=== PATIENT | male | born 1945 | race Caucasian/White ===

== ENCOUNTER 2016-12-03 22:53 | Emergency (ER) | payer MEDICARE, BC ==
--- NOTE | 2016-12-03 23:28 | EDM.PDOC ---
ED HPI GENERAL MEDICAL PROBLEM - General Chief Complaint: Cardiovascular Problem Stated Complaint: HEART RACING Time Seen by Provider: 12/03/16 22:53 Source of Information: Reports: Patient, Family () History Limitations: Reports: No Limitations - History of Present Illness INITIAL COMMENTS - FREE TEXT/NARRATIVE: Patient presents to ER with a racing heart that started about an hour prior to arrival. He says there is a little chest tightness but very mild. He has had sharp pains in his chest awaken about 0400 the last two mornings but resolved when he sat up. No history of this in the past. No OK but does have stents. - Related Data Allergies Allergy/AdvReac Type Severity Reaction Status Date / Time No Known Drug Allergies Allergy Cannot Verified 12/03/16 23:25 Remember Home Meds: Home Meds Aspirin 325 mg PO DAILY 02/22/15 [History] Losartan/Hydrochlorothiazide [Losartan-HCTZ 100-12.5 MG] 12.5 - 100 mg PO DAILY 02/22/15 [History] atorvaSTATin Calcium [Atorvastatin Calcium] 40 mg PO DAILY 02/22/15 [History] Sildenafil Citrate [Sildenafil] 20 mg PO DAILY PRN 12/03/16 [History] Past Medical History HEENT History: Reports: None Cardiovascular History: Reports: High Cholesterol, Hypertension Respiratory History: Reports: None Gastrointestinal History: Reports: GERD Genitourinary History: Reports: Renal Calculus Musculoskeletal History: Reports: None Neurological History: Reports: None Psychiatric History: Reports: None Endocrine/Metabolic History: Reports: None Hematologic History: Reports: None Dermatologic History: Reports: None - Past Surgical History Cardiovascular Surgical History: Reports: Coronary Artery Stent Social & Family History - Tobacco Use Smoking Status *Q: Never Smoker Second Hand Smoke Exposure: No - Recreational Drug Use Recreational Drug Use: No - Living Situation & Occupation Living situation: Reports: with Significant Other Occupation: Employed ED ROS GENERAL - Review of Systems Review Of Systems: See Below Constitutional: Reports: Diaphoresis (felt a little when the heart started racing). Denies: Fever HEENT: Denies: Throat Pain, Vision Change Respiratory: Denies: Shortness of Breath, Cough Cardiovascular: Denies: Lightheadedness, Syncope GI/Abdominal: Reports: Abdominal Pain (a little the past two days). Denies: Nausea, Vomiting : Denies: Dysuria Musculoskeletal: Denies: Neck Pain, Shoulder Pain, Arm Pain, Back Pain Skin: Denies: Cyanosis, Jaundice, Mottled, Pallor, Diaphoresis Neurological: Denies: Confusion, Dizziness, Headache, Seizure, Syncope Psychiatric: Denies: Agitation, Anxiety, Confusion ED EXAM, GENERAL - Physical Exam Exam: See Below Exam Limited By: No Limitations General Appearance: Alert, WD/WN, No Apparent Distress Eye Exam: Bilateral Eye: EOMI, Normal Inspection, PERRL Ears: Normal External Exam, Hearing Grossly Normal Nose: Normal Inspection, No Blood Throat/Mouth: Normal Lips, Normal Voice, No Airway Compromise Head: Atraumatic, Normocephalic Neck: Normal Inspection, Supple, Non-Tender, Full Range of Motion. No: Carotid Bruit Respiratory/Chest: No Respiratory Distress, Lungs Clear, Normal Breath Sounds Cardiovascular: Normal Peripheral Pulses, Regular Rate, Rhythm (following the adenosine), No Edema, No JVD, No Murmur Peripheral Pulses: 2+: Carotid (L), Carotid (R), Radial (L), Radial (R) GI/Abdominal: Normal Bowel Sounds, Soft, Non-Tender, No Organomegaly, No Distention Extremities: Normal Inspection, Normal Range of Motion, Non-Tender, No Pedal Edema Neurological: Alert, Oriented, Normal Cognition, No Motor/Sensory Deficits Psychiatric: Normal Affect, Normal Mood Skin Exam: Warm, Dry, Intact, Normal Color, No Rash Course - Orders/Labs/Meds Orders: Active Orders 24 hr Category Date Time Status EKG Documentation Completion [RC] ASDIRECTED Care 12/03/16 23:10 Ordered CXR [Chest 1V Frontal] [CR] Stat Exams 12/03/16 23:21 Ordered BASIC METABOLIC PANEL,BMP [CHEM] Stat Lab 12/03/16 23:10 Ordered CBC WITH AUTO DIFF [HEME] Stat Lab 12/03/16 23:10 Ordered TROPONIN I [CHEM] Stat Lab 12/03/16 23:10 Ordered EKG 12 Lead [EK] Routine Ther 12/03/16 23:10 Ordered - Re-Assessments/Exams Free Text/Narrative Re-Assessment/Exam: 12/03/16 23:31 EKG with HR 170 and wide complex tach. Unclear if V Tach or LBBB with SVT. [facility] consulted and they are also unclear but after reviewing several old EKGs also showing LBBB, administered adenosine 6 mg. This failed to slow the rhythm, but 12 mg was successful. HR dropped from 173 to 80s quickly and remained stable. Patient says that the mild chest tightness also went away and he feels completely normal now. Lolita NUNO recommends discussing with cardiology to see if they want to see him tonight or within next day or two. Of course if the pending troponin is elevated it will be tonight. 12/04/16 00:12 Trop is 0.07. Discussed this with direct service worker, Dr. Padilla, who thinks patient is okay to follow up with them next week for stress test and echocardiogram as long as the second trop isn't going up. Patient is resting very comfortably and is fine with going up next week but really hopes he can go home tonight. 12/04/16 02:04 Second trop is 0.12. Discussed with Dr. Langley, hospitalist at [facility] in [place] , who accepted for transfer. Patient has been stable and comfortable since the adenosine. Metoprolol 50mg was given po to control rate per Dr. Padilla. 12/04/16 02:22 The correct time of my first contact with the patient was 10:44 pm but the initial computer patient was wrong so this patient was entered into the computer later and it wouldn't accept the correct time of provider arrival since it was prior to patient arrival. Departure - Departure Time of Disposition: 02:06 Disposition: DC/Tfer to Acute Hospital 02 Reason for Transfer *Q: Primary PCI Indicated Condition: Good Clinical Impression: Elevated troponin, SVT (supraventricular tachycardia) CAD (coronary artery disease) Qualifiers: Coronary Disease-Associated Artery/Lesion type: [place] artery [place] vs. transplanted heart: [place] heart Associated angina: without angina Qualified Code(s): I25.10 - Atherosclerotic heart disease of [place] coronary artery without angina pectoris - My Orders Last 24 Hours: My Active Orders 12/03/16 23:10 EKG Documentation Completion [RC] ASDIRECTED BASIC METABOLIC PANEL,BMP [CHEM] Stat CBC WITH AUTO DIFF [HEME] Stat TROPONIN I [CHEM] Stat EKG 12 Lead [EK] Routine 12/03/16 23:21 CXR [Chest 1V Frontal] [CR] Stat - Assessment/Plan Last 24 Hours: My Active Orders 12/03/16 23:10 EKG Documentation Completion [RC] ASDIRECTED BASIC METABOLIC PANEL,BMP [CHEM] Stat CBC WITH AUTO DIFF [HEME] Stat TROPONIN I [CHEM] Stat EKG 12 Lead [EK] Routine 12/03/16 23:21 CXR [Chest 1V Frontal] [CR] Stat
[2016-12-03 23:33] LABS: CHLORIDE,CL 104 mmol/L (98-115); SODIUM,NA 142 mmol/L (136-145)
[2016-12-03] MEDS ORDERED: Adenosine 12 MG/4 ML SDV IVPUSH ONE (23:48)
[2016-12-03] MEDS ORDERED: Adenosine 6 MG/2 ML SDV IVPUSH ONE (23:48)
[2016-12-03] MEDS ORDERED: Sodium Chloride 0.9% 1,000 ML IV ONE (23:49)
[2016-12-04] MEDS ORDERED: Metoprolol Tartrate 50 MG Tab PO ONE (00:09)
[2016-12-04] MEDS ORDERED: Aspirin 81 MG Tab.Chew PO ONE (01:55)
[2016-12-04] MEDS ORDERED: Aspirin 81 MG Tab.Chew ONE (01:55)
[2016-12-04 02:22] VITALS: BP 119/58
== END 2016-12-04 02:38 ==
LOC: KA.ED 22:53
DX: I47.1 Supraventricular tachycardia (principal); R79.89 Other specified abnormal findings of blood chemistry; I25.10 Atherosclerotic heart disease of native coronary artery without angina pectoris; E78.00 Pure hypercholesterolemia, unspecified; I10 Essential (primary) hypertension; K21.9 Gastro-esophageal reflux disease without esophagitis; Z95.5 Presence of coronary angioplasty implant and graft; Z79.82 Long term (current) use of aspirin
CPT/HCPCS: 36415; 71010; 80048; 84484; 85025; 93005; 96361; 96374; 99285; A9270; J0153; J7030

== ENCOUNTER 2016-12-28 22:20 | Observation (INO) | payer MEDICARE, BC ==
[2016-12-28] MEDS ORDERED: Sodium Chloride 0.9% 5 ML Syringe FLUSH PRN (23:34)
[2016-12-29 06:48] VITALS: BP 114/68
[2016-12-29] MEDS ORDERED: Lidocaine 2% 100 MG/5 ML Syringe IVPUSH PRN (08:37)
[2016-12-29] MEDS ORDERED: EPINEPHrine 1:10,000 1 MG/10 ML Syringe IVPUSH PRN (08:37)
[2016-12-29] MEDS ORDERED: Atropine 0.1 MG/ML 10 ML Syringe IVPUSH PRN (08:37)
[2016-12-29] MEDS ORDERED: Nitroglycerin 0.4 MG Tab.SL SL PRN (08:37)
[2016-12-29] MEDS ORDERED: Aspirin 81 MG Tab.Chew PO SCH (08:45)
[2016-12-29] MEDS ORDERED: Clopidogrel 75 MG Tab PO SCH (09:00)
[2016-12-29] MEDS ORDERED: Hydrochlorothiazide 12.5 MG Cap PO SCH (09:00)
[2016-12-29] MEDS ORDERED: Losartan 50 MG Tab PO SCH (09:00)
[2016-12-29] MEDS ORDERED: atorvaSTATin 40 MG Tab PO SCH (21:00)
--- NOTE | 2017-01-04 08:30 | DISCH ---
FINAL DIAGNOSES: 1. Ruled out myocardial infarction. 2. Chest pain, resolved. HISTORY: This 71-year-old male was admitted to the hospital due to chest pain, he was for rule out [place]. He was evaluated by Dr. Cho, the morning of admission at the [facility] when he came in due to some chest pain that he described as pressure the night before with some mild shortness of breath. He stated he woke up about midnight before he came in, when he felt like somebody was pressing their finger on his chest. He took some [place]. It lasted about an hour. He did have some belching and some burping quite a bit, and within an hour, it went away. He felt much better and he slept the rest of the night. He subsequently did make an appointment that next morning. He stated he already had an initial appointment already made, so he did go in. Dr. Cho did perform troponin levels which were normal. Initially, however, he was to go back to the [facility] approximately 6 hours later for a repeat which was slightly elevated. The patient was subsequently directly admitted into observation overnight for serialized troponins. HOSPITAL COURSE: The patient's troponins in the hospital although very slightly elevated, he did not have any more chest pain. He felt good. Telemetries were monitored. He did not have EKG changes. He was subsequently released the next morning, and he followed up in the [facility] which he did have two more troponins that were normal. The patient's EKG does show left bundle branch block. It was unclear whether chest pain was any cardiac origin, Cardiology was consulted by Dr. Cho. Since he does have newly placed stents in, they felt like since he did not have any active chest pain other than mild GI symptoms, that most likely was not cardiac in origin. He never became hemodynamically unstable. Troponin in the hospital peaked at 0.18, which is a little more than two times upper limit of normal. Vital signs were good. Blood pressure 114/68, heart rate 55, temperature 97.2, and O2 sats 93%. He was monitored on telemetry. The next morning, he was ready for discharge. On discharge, he followed up with the [facility]. He had normal troponins x2 at the [facility]. He was to continue on all his home medications. PHYSICAL EXAM ON DISCHARGE: GENERAL: The patient was alert and oriented. CARDIOVASCULAR: Regular rate and rhythm. He had no chest pain. LUNGS: Clear to auscultation. GASTROINTESTINAL: He had no GI disturbance. DISPOSITION: The patient will be discharged from the hospital. /[id number]/MODL MTDD
== END 2016-12-29 12:15 | disposition home or self-care (01) ==
LOC: KA.MS 22:20
PROVIDERS: ADMIT Internal Medicine; ATTEND Internal Medicine
DX: R07.9 Chest pain, unspecified (principal); I25.10 Atherosclerotic heart disease of native coronary artery without angina pectoris; E78.2 Mixed hyperlipidemia; I10 Essential (primary) hypertension; I21.4 Non-ST elevation (NSTEMI) myocardial infarction; I50.32 Chronic diastolic (congestive) heart failure; E66.9 Obesity, unspecified; Z68.30 Body mass index [BMI] 30.0-30.9, adult; K21.9 Gastro-esophageal reflux disease without esophagitis; Z79.82 Long term (current) use of aspirin; Z79.899 Other long term (current) drug therapy
CPT/HCPCS: 36415; 84484

== ENCOUNTER 2017-09-03 05:05 | Emergency (ER) | payer MEDICARE, BC | END 2017-09-03 05:25 | disposition left against medical advice (07) | LOC: KA.ED 05:05 | DX: Z53.21 Procedure and treatment not carried out due to patient leaving prior to being seen by health care provider (principal) ==

== ENCOUNTER 2018-09-01 19:36 | Emergency (ER) | payer MEDICARE, BC ==
[2018-09-01] MEDS ORDERED: Tetracaine HCl/PF 0.5% 4 ML Bottle EYERT ONE (20:00)
[2018-09-01] MEDS ORDERED: Erythromycin Base 0.5% Ophth Oint 1 GM Tube EYERT ONE (20:18)
--- NOTE | 2018-09-01 20:27 | EDM.PDOC ---
ED HPI GENERAL MEDICAL PROBLEM - General Chief Complaint: General Stated Complaint: SOMETHING IN RIGHT EYE Time Seen by Provider: 09/01/18 20:18 Source of Information: Reports: Patient History Limitations: Reports: No Limitations - History of Present Illness INITIAL COMMENTS - FREE TEXT/NARRATIVE: Patient is a 73-year-old gentleman who presents to the emergency Department this evening with a complaint of right eye pain. Patient states that he was grinding metal and was not wearing eye protection. Patient states that small foreign body struck him in his eye. Now has a sensation of foreign body in the right eye. Patient denies any other injury. Onset: Today Duration: Minutes: Location: Reports: Other (Right eye) Quality: Reports: Burning Severity: Mild Improves with: Reports: None Worsens with: Reports: Other (Blinking) Context: Reports: Trauma Associated Symptoms: Reports: No Other Symptoms Right Eye Pain Score (Numeric/FACES): 5 - Related Data Allergies Allergy/AdvReac Type Severity Reaction Status Date / Time No Known Drug Allergies Allergy Cannot Verified 09/01/18 19:51 Remember Home Meds: Home Meds Losartan/Hydrochlorothiazide [Losartan-HCTZ 100-12.5 MG] 12.5 - 100 mg PO DAILY 02/22/15 [History] atorvaSTATin Calcium [Atorvastatin Calcium] 40 mg PO DAILY 02/22/15 [History] Sildenafil Citrate [Sildenafil] 20 mg PO DAILY PRN 12/03/16 [History] Clopidogrel Bisulfate [Clopidogrel] 75 mg PO DAILY 12/29/16 [History] Dutasteride 0.5 mg PO BEDTIME 09/01/18 [History] Terazosin [Hytrin] 1 mg PO BEDTIME 09/01/18 [History] Past Medical History HEENT History: Reports: None Cardiovascular History: Reports: High Cholesterol, Hypertension, Stents Other Cardiovascular History: 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, cardiac arrest Respiratory History: Reports: None Gastrointestinal History: Reports: GERD Other Gastrointestinal History: torn esophagus Genitourinary History: Reports: Renal Calculus Musculoskeletal History: Reports: None Neurological History: Reports: None Psychiatric History: Reports: None Endocrine/Metabolic History: Reports: None Hematologic History: Reports: None Dermatologic History: Reports: None - Infectious Disease History Infectious Disease History: Reports: Pertussis (Whooping Cough) - Past Surgical History Cardiovascular Surgical History: Reports: Coronary Artery Stent Social & Family History - Tobacco Use Smoking Status *Q: Never Smoker Second Hand Smoke Exposure: No - Caffeine Use Caffeine Use: Reports: Soda - Recreational Drug Use Recreational Drug Use: No - Living Situation & Occupation Living situation: Reports: with Significant Other Occupation: Employed ED ROS GENERAL - Review of Systems Review Of Systems: ROS reveals no pertinent complaints other than HPI. Constitutional: Reports: No Symptoms HEENT: Reports: Eye Pain (Right) Respiratory: Reports: No Symptoms Cardiovascular: Reports: No Symptoms Endocrine: Reports: No Symptoms GI/Abdominal: Reports: No Symptoms : Reports: No Symptoms Musculoskeletal: Reports: No Symptoms Skin: Reports: No Symptoms Neurological: Reports: No Symptoms Psychiatric: Reports: No Symptoms Hematologic/Lymphatic: Reports: No Symptoms Immunologic: Reports: No Symptoms ED EXAM, GENERAL - Physical Exam Exam: See Below Exam Limited By: No Limitations General Appearance: Alert, WD/WN, No Apparent Distress Eye Exam: Right Eye: Corneal Abrasion, Foreign Body Throat/Mouth: Normal Inspection, Normal Oropharynx, No Airway Compromise Head: Atraumatic, Normocephalic Neck: Normal Inspection Respiratory/Chest: No Respiratory Distress Neurological: Alert, Oriented, Normal Cognition Psychiatric: Normal Affect, Normal Mood Skin Exam: Warm, Dry, Intact, Normal Color, No Rash ED GENERAL MEDICAL PROCEDURES - Additional/Other Procedure(s) Other (Free Text) Procedure(s): Right eye mid lateral cornea metal foreign body. Tetracaine applied and visual acuity assessed. Patient 20/50 bilaterally. Using an 18-gauge 1-1/2 inch needle. Small metal foreign body removed without difficulty. Corneal abrasion remains. Eye copiously irrigated and no other foreign bodies noted. Erythromycin ointment applied. Patient tolerated procedure well Course - Vital Signs Last Recorded V/S: Last Vital Signs Temp 97.9 F 09/01/18 19:45 Pulse 59 L 09/01/18 19:45 Resp 20 09/01/18 19:45 BP Pulse Ox 95 09/01/18 19:45 - Orders/Labs/Meds Meds: Medications Discontinued Medications Generic Name Dose Route Start Last Admin Trade Name Nelida PRN Reason Stop Dose Admin Erythromycin 1 gm 09/01/18 20:18 Erythromycin 0.5% Ophth Oint EYERT 09/01/18 20:19 ONETIME ONE Tetracaine HCl 1 ml 09/01/18 20:00 09/01/18 20:03 Tetracaine 0.5% Steri-Unit Ramona EYERT 09/01/18 20:01 1 ml ASDIRECTED ONE Administration - Re-Assessments/Exams Free Text/Narrative Re-Assessment/Exam: 09/01/18 20:47 Patient afebrile, vital signs stable, tolerated procedure well, right eye pain relieved. Erythromycin ointment applied. Discussed case with Dr. Hadley, ophthalmology at [facility]. He will see patient in his office tomorrow afternoon. Departure - Departure Time of Disposition: 20:48 Disposition: Home, Self-Care 01 Clinical Impression: Corneal foreign body Qualifiers: Encounter type: initial encounter Laterality: right Qualified Code(s): T15.01XA - Foreign body in cornea, right eye, initial encounter Corneal abrasion Qualifiers: Encounter type: initial encounter Laterality: right Qualified Code(s): S05.01XA - Injury of conjunctiva and corneal abrasion without foreign body, right eye, initial encounter - Discharge Information Instructions: Eye Foreign Body, [id number], Corneal Abrasion, [id number] Referrals: Ivania De Anda MD [Primary Care Provider] - Additional Instructions: Follow-up with Dr. Hadley, ophthalmology at [facility] tomorrow. Contact office at 8 a.m. for appointment time. Return to emergency department sooner if symptoms continue or worsen. - Assessment/Plan Assessment:: Right eye corneal foreign body removed Plan: Follow-up with ophthalmology tomorrow
[2018-09-01] MEDS ORDERED: Erythromycin Base 0.5% Ophth Oint 3.5 GM Tube EYERT ONE (21:02)
== END 2018-09-01 21:10 | disposition home or self-care (01) ==
LOC: KA.ED 19:36
DX: T15.01XA Foreign body in cornea, right eye, initial encounter (principal); I10 Essential (primary) hypertension; E78.00 Pure hypercholesterolemia, unspecified; K21.9 Gastro-esophageal reflux disease without esophagitis; Z79.899 Other long term (current) drug therapy
CPT/HCPCS: 65220; 99282; 99283

== ENCOUNTER 2018-11-12 19:20 | Emergency (ER) | payer MEDICARE, BC ==
[2018-11-12] MEDS ORDERED: Sodium Chloride 0.9% 10 ML Syringe FLUSH PRN (19:24)
[2018-11-12] MEDS ORDERED: Sodium Chloride 0.9% 1,000 ML IV ONE (19:24)
[2018-11-12] MEDS ORDERED: Ondansetron 4 MG/2 ML SDV IVPUSH ONE ×2 (19:24→20:05)
--- NOTE | 2018-11-12 19:33 | EDM.PDOC ---
ED HPI GENERAL MEDICAL PROBLEM - General Chief Complaint: Abdominal Pain Stated Complaint: ABDOMINAL PAIN Time Seen by Provider: 11/12/18 19:25 Source of Information: Reports: Patient History Limitations: Reports: No Limitations - History of Present Illness INITIAL COMMENTS - FREE TEXT/NARRATIVE: 73 YO WM presents to ER complaining of LLQ abdominal pain which began suddenly just prior to arrival. Pt reports he was eating supper and developed LLQ pain with associated nausea/vomiting. Pt reports history of kidney stones and states the pain is similar to kidney stones in the past. Pt denies any history of diverticulitis, colitis, or bowel obstruction. Pt denies fever/chills. Pt with large amount of vomiting while in ER. Pt denies any testicular pain, no dysuria , no flank pain. Onset: Sudden Location: Reports: Abdomen Quality: Reports: Dull Severity: Severe Improves with: Reports: None Worsens with: Reports: None Associated Symptoms: Reports: Nausea/Vomiting. Denies: Chest Pain, Fever/Chills , Shortness of Breath right lower abdomen Pain Score (Numeric/FACES): 3 - Related Data Allergies Allergy/AdvReac Type Severity Reaction Status Date / Time No Known Drug Allergies Allergy Cannot Verified 11/12/18 19:50 Remember Home Meds: Home Meds Losartan/Hydrochlorothiazide [Losartan-HCTZ 100-12.5 MG] 12.5 - 100 mg PO DAILY 02/22/15 [History] atorvaSTATin Calcium [Atorvastatin Calcium] 40 mg PO DAILY 02/22/15 [History] Sildenafil Citrate 20 mg PO DAILY PRN 12/03/16 [History] Clopidogrel Bisulfate [Clopidogrel] 75 mg PO DAILY 12/29/16 [History] Dutasteride 0.5 mg PO BEDTIME 09/01/18 [History] Terazosin [Hytrin] 1 mg PO BEDTIME 09/01/18 [History] Past Medical History HEENT History: Reports: None Cardiovascular History: Reports: High Cholesterol, Hypertension, Stents Other Cardiovascular History: 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, cardiac arrest Respiratory History: Reports: None Gastrointestinal History: Reports: GERD Other Gastrointestinal History: torn esophagus Genitourinary History: Reports: Renal Calculus Musculoskeletal History: Reports: None Neurological History: Reports: None Psychiatric History: Reports: None Endocrine/Metabolic History: Reports: None Hematologic History: Reports: None Dermatologic History: Reports: None - Infectious Disease History Infectious Disease History: Reports: Pertussis (Whooping Cough) - Past Surgical History Cardiovascular Surgical History: Reports: Coronary Artery Stent Social & Family History - Caffeine Use Caffeine Use: Reports: Soda - Living Situation & Occupation Living situation: Reports: with Significant Other Occupation: Employed ED ROS GENERAL - Review of Systems Review Of Systems: See Below Constitutional: Reports: No Symptoms HEENT: Reports: No Symptoms Respiratory: Reports: No Symptoms Cardiovascular: Reports: No Symptoms Endocrine: Reports: No Symptoms GI/Abdominal: Reports: Abdominal Pain, Nausea, Vomiting : Reports: No Symptoms Musculoskeletal: Reports: No Symptoms Skin: Reports: No Symptoms Neurological: Reports: No Symptoms Psychiatric: Reports: No Symptoms Hematologic/Lymphatic: Reports: No Symptoms Immunologic: Reports: No Symptoms ED EXAM, RENAL/ - Physical Exam Exam: See Below Exam Limited By: No Limitations General Appearance: Alert, WD/WN, Mild Distress Throat/Mouth: Normal Inspection, Normal Lips, Normal Teeth, Normal Gums, Normal Oropharynx, Normal Voice, No Airway Compromise Head: Atraumatic, Normocephalic Neck: Normal Inspection, Supple, Non-Tender, Full Range of Motion Respiratory/Chest: No Respiratory Distress, Lungs Clear, Normal Breath Sounds, No Accessory Muscle Use, Chest Non-Tender Cardiovascular: Normal Peripheral Pulses, Regular Rate, Rhythm, No Edema, No Gallop, No JVD, No Murmur, No Rub GI/Abdominal: Normal Bowel Sounds, Soft, Non-Tender, No Organomegaly, No Distention, No Abnormal Bruit, No Mass, Tender (mild LLQ abdominal pain and suprapubic pain) Back Exam: Normal Inspection, Full Range of Motion, NT Extremities: Normal Inspection, Normal Range of Motion, Non-Tender, Normal Capillary Refill, No Pedal Edema Neurological: Alert, Oriented, CN II-XII Intact, Normal Cognition, Normal Gait, Normal Reflexes, No Motor/Sensory Deficits Psychiatric: Normal Affect, Normal Mood Skin Exam: Warm, Dry, Intact, Normal Color, No Rash Course - Vital Signs Last Recorded V/S: Last Vital Signs Temp 37.2 C 11/12/18 19:34 Pulse 57 L 11/12/18 19:34 Resp 20 11/12/18 19:34 BP 168/92 H 11/12/18 19:34 Pulse Ox 93 L 11/12/18 19:34 - Orders/Labs/Meds Orders: Active Orders 24 hr Category Date Time Status Peripheral IV Care [RC] . DIRECTED Care 11/12/18 19:25 Active Abdomen Pelvis wo Cont [CT] Stat Exams 11/12/18 19:51 Ordered Sodium Chloride 0.9% [Saline Flush] Med 11/12/18 19:24 Active 10 ml FLUSH Q8HR PRN Peripheral IV Insertion Adult [OM.PC] Routine Oth 11/12/18 19:24 Ordered Medication Orders Sodium Chloride (Saline Flush) 10 ml FLUSH Q8HR PRN PRN Reason: keep vein open Last Admin: 11/12/18 19:30 Dose: 10 ml Labs: Laboratory Tests 11/12/18 11/12/18 11/12/18 Range/Units 19:24 19:30 19:30 WBC 11.31 H (5.00-10.00) 10^3/uL RBC 4.80 (4.50-6.00) 10^6/uL Hgb 14.9 (13.0-17.0) g/dL Hct 43.9 (40.0-52.0) % MCV 91.5 (82.0-92.0) fL MCH 31.0 (27.0-31.0) pg MCHC 33.9 (32.0-36.0) g/dL RDW 13.0 (11.5-14.5) % Plt Count 225 (150-400) 10^3/uL MPV 12.1 H (7.4-10.4) fL Immature Gran % (Auto) 0.3 (0.0-5.0) % Neut % (Auto) 58.7 (50.0-70.0) % Lymph % (Auto) 26.1 (20.0-40.0) % [place] % (Auto) 11.8 H (2.0-8.0) % Eos % (Auto) 2.7 (1.0-3.0) % Baso % (Auto) 0.4 (0.0-1.0) % Immature Gran # (Auto) 0.03 (0.00-0.50) 10^3/uL Neut # (Auto) 6.65 (2.50-7.00) 10^3/uL Lymph # (Auto) 2.95 (1.00-4.00) 10^3/uL [place] # (Auto) 1.33 H (0.10-0.80) 10^3/uL Eos # (Auto) 0.30 (0.10-0.30) 10^3/uL Baso # (Auto) 0.05 (0.00-0.10) 10^3/uL Sodium 141 (136-145) mmol/L Potassium 3.8 (3.3-5.3) mmol/L Chloride 106 (98-115) mmol/L Carbon Dioxide 22.9 (21.0-32.0) mmol/L Anion Gap 15.9 H (5-15) mmol/L BUN 18 (6-25) mg/dL Creatinine 0.96 (0.51-1.17) mg/dL Est Cr Clr Drug Dosing 65.31 mL/min Estimated GFR (MDRD) > 60 mL/min Glucose 129 H (75 - 99) mg/dL Calcium 9.6 (8.7-10.3) mg/dL Total Bilirubin (0.2-1.0) mg/dL Direct Bilirubin (0.0-0.2) mg/dL Indirect Bilirubin mg/dL AST (15-37) U/L ALT (12-78) U/L Alkaline Phosphatase (46-116) IU/L Total Protein (6.4-8.2) g/dL Albumin (3.00-4.80) g/dL Globulin Albumin/Globulin Ratio Lipase (73-393) U/L Specimen Type Urinvoid Urine Color Yellow (YELLOW) Urine Appearance Clear (CLEAR) Urine pH 5.0 (5.0-9.0) Ur Specific [place] >= 1.030 (1.005-1.030) Urine Protein 30 H (NEGATIVE) mg/dL Urine Glucose (UA) Negative (NEGATIVE) mg/dL Urine Ketones Negative (NEGATIVE) mg/dL Urine Occult Blood Large H (NEGATIVE) Urine Nitrite Negative (NEGATIVE) Urine Bilirubin Negative (NEGATIVE) Urine Urobilinogen 0.2 (0.2-1.0) E.U./dL Ur Leukocyte Esterase Negative (NEGATIVE) Urine RBC 40-50 H (0-5) /HPF Urine WBC 0-5 (0-5) /HPF Ur Epithelial Cells Few /LPF Urine Bacteria Rare (NONE TO FEW) /HPF Urine Mucus Few H (NEGATIVE) /LPF Urine Yeast Moderate H (NEGATIVE) /HPF 11/12/18 Range/Units 19:30 WBC (5.00-10.00) 10^3/uL RBC (4.50-6.00) 10^6/uL Hgb (13.0-17.0) g/dL Hct (40.0-52.0) % MCV (82.0-92.0) fL MCH (27.0-31.0) pg MCHC (32.0-36.0) g/dL RDW (11.5-14.5) % Plt Count (150-400) 10^3/uL MPV (7.4-10.4) fL Immature Gran % (Auto) (0.0-5.0) % Neut % (Auto) (50.0-70.0) % Lymph % (Auto) (20.0-40.0) % [place] % (Auto) (2.0-8.0) % Eos % (Auto) (1.0-3.0) % Baso % (Auto) (0.0-1.0) % Immature Gran # (Auto) (0.00-0.50) 10^3/uL Neut # (Auto) (2.50-7.00) 10^3/uL Lymph # (Auto) (1.00-4.00) 10^3/uL [place] # (Auto) (0.10-0.80) 10^3/uL Eos # (Auto) (0.10-0.30) 10^3/uL Baso # (Auto) (0.00-0.10) 10^3/uL Sodium (136-145) mmol/L Potassium (3.3-5.3) mmol/L Chloride (98-115) mmol/L Carbon Dioxide (21.0-32.0) mmol/L Anion Gap (5-15) mmol/L BUN (6-25) mg/dL Creatinine (0.51-1.17) mg/dL Est Cr Clr Drug Dosing mL/min Estimated GFR (MDRD) mL/min Glucose (75 - 99) mg/dL Calcium (8.7-10.3) mg/dL Total Bilirubin 0.6 (0.2-1.0) mg/dL Direct Bilirubin 0.1 (0.0-0.2) mg/dL Indirect Bilirubin 0.5 mg/dL AST 25 (15-37) U/L ALT 29 (12-78) U/L Alkaline Phosphatase 76 (46-116) IU/L Total Protein 7.1 (6.4-8.2) g/dL Albumin 3.67 (3.00-4.80) g/dL Globulin 3.43 Albumin/Globulin Ratio 1.06 Lipase 143 (73-393) U/L Specimen Type Urine Color (YELLOW) Urine Appearance (CLEAR) Urine pH (5.0-9.0) Ur Specific [place] (1.005-1.030) Urine Protein (NEGATIVE) mg/dL Urine Glucose (UA) (NEGATIVE) mg/dL Urine Ketones (NEGATIVE) mg/dL Urine Occult Blood (NEGATIVE) Urine Nitrite (NEGATIVE) Urine Bilirubin (NEGATIVE) Urine Urobilinogen (0.2-1.0) E.U./dL Ur Leukocyte Esterase (NEGATIVE) Urine RBC (0-5) /HPF Urine WBC (0-5) /HPF Ur Epithelial Cells /LPF Urine Bacteria (NONE TO FEW) /HPF Urine Mucus (NEGATIVE) /LPF Urine Yeast (NEGATIVE) /HPF Meds: Medications Generic Name Dose Route Start Last Admin Trade Name Freq PRN Reason Stop Dose Admin Sodium Chloride 10 ml 11/12/18 19:24 11/12/18 19:30 Saline Flush FLUSH 10 ml Q8HR PRN Administration keep vein open Discontinued Medications Generic Name Dose Route Start Last Admin Trade Name Freq PRN Reason Stop Dose Admin Sodium Chloride 1,000 mls @ 999 mls/hr 11/12/18 19:24 11/12/18 19:49 Normal Saline IV 11/12/18 20:24 999 mls/hr .BOLUS ONE Administration Ketorolac Tromethamine 30 mg 11/12/18 19:51 11/12/18 20:03 Toradol IVPUSH 11/12/18 19:52 30 mg ONETIME ONE Administration Ondansetron HCl 4 mg 11/12/18 19:24 11/12/18 19:49 Zofran IVPUSH 11/12/18 19:25 4 mg ONETIME ONE Administration Ondansetron HCl 4 mg 11/12/18 20:05 Zofran IVPUSH 11/12/18 20:06 ONETIME ONE - Radiology Interpretation Free Text/Narrative:: CT abd/pelvis- 3mm distal left ureteral stone with mild hydronephrosis. - Re-Assessments/Exams Free Text/Narrative Re-Assessment/Exam: 11/12/18 21:15 Pt is painfree after toradol 30mg IV and zofran 4mg IV- Pt thinks his stone has passed. Pt wants to go home Departure - Departure Time of Disposition: 21:16 Disposition: Home, Self-Care 01 Condition: Good Clinical Impression: Kidney stone on left side - Discharge Information Instructions: Kidney Stones, Pain Medicine Instructions, [id number] Referrals: Ivania De Anda MD [Primary Care Provider] - Forms: ED Department Discharge Additional Instructions: 1. discharge home 2. hydrocodone 10/325mg #6 1 tablet every 6 hour as needed for pain 3. zofran 4mg ODT #5 1 SL Q6 prn vomiting 4. plenty of fluids 5. follow up with PCP for recheck this week 6. return to ER for worsening symptoms - My Orders Last 24 Hours: My Active Orders 11/12/18 19:24 Sodium Chloride 0.9% [Saline Flush] 10 ml FLUSH Q8HR PRN Peripheral IV Insertion Adult [OM.PC] Routine 11/12/18 19:25 Peripheral IV Care [RC] . DIRECTED 11/12/18 19:51 Abdomen Pelvis wo Cont [CT] Stat - Assessment/Plan Last 24 Hours: My Active Orders 11/12/18 19:24 Sodium Chloride 0.9% [Saline Flush] 10 ml FLUSH Q8HR PRN Peripheral IV Insertion Adult [OM.PC] Routine 11/12/18 19:25 Peripheral IV Care [RC] . DIRECTED 11/12/18 19:51 Abdomen Pelvis wo Cont [CT] Stat Assessment:: 1. Left 3mm UVJ stone with mild hydronephrosis Plan: 1. discharge home 2. hydrocodone 10/325mg #6 1 tablet every 6 hour as needed for pain 3. zofran 4mg ODT #5 1 SL Q6 prn vomiting 4. plenty of fluids 5. follow up with PCP for recheck this week 6. return to ER for worsening symptoms
[2018-11-12 19:42] VITALS: BP 168/92; PULSE 57
[2018-11-12] MEDS ORDERED: Ketorolac 30 MG/ML SDV IVPUSH ONE (19:51)
[2018-11-12 20:22] LABS: ANION GAP 15.9 mmol/L (5-15); CHLORIDE,CL 106 mmol/L (98-115); SODIUM,NA 141 mmol/L (136-145)
[2018-11-12] MEDS ORDERED: Acetaminophen/HYDROcodone 325-10 MG Tab PO ONE (21:17)
[2018-11-12] MEDS ORDERED: Ondansetron 4 MG Tab.DIS PO ONE (21:17)
--- NOTE | 2018-11-13 10:23 | CT ---
[id number] CT/CT Abdomen Pelvis WO IV EXAM: CT Abdomen Pelvis WO IV CLINICAL DATA: LLQ PAIN WITH HX OF KIDNEY STONES. COMPARISON STUDY: January 17, 2011. FINDINGS: Lung bases are clear. Small hiatal hernia. Liver, spleen, gallbladder, pancreas, and adrenal glands are unremarkable. There is a 3 mm stone within the distal 3rd of the left ureter resulting in mild hydronephrosis and hydroureter. There are additional punctate stones seen throughout the kidneys bilaterally. Additionally there are multiple renal cortical cysts. No hydronephrosis on the right. No bowel obstruction or inflammation. No lymphadenopathy, free fluid, or pneumoperitoneum. Scattered changes of spondylosis the spine. No fracture or osseous lesion. IMPRESSION: 3 mm stone within the distal 3rd of the left ureter resulting in mild hydronephrosis and hydroureter. Eddie Marion DO 11/13/18 1022 Thank you for allowing us to participate in the care of your patient.
== END 2018-11-12 21:30 | disposition home or self-care (01) ==
LOC: KA.ED 19:20
DX: N13.2 Hydronephrosis with renal and ureteral calculous obstruction (principal); E78.00 Pure hypercholesterolemia, unspecified; I10 Essential (primary) hypertension; K21.9 Gastro-esophageal reflux disease without esophagitis; Z79.899 Other long term (current) drug therapy; Z87.442 Personal history of urinary calculi
CPT/HCPCS: 74176; 80048; 80076; 81001; 83690; 85025; 96361; 96374; 96375; 99284; J1885; J2405; J7030

== ENCOUNTER 2020-05-14 22:50 | Emergency (ER) | payer MEDICARE, BC ==
[2020-05-14] MEDS ORDERED: Sodium Chloride 0.9% 1,000 ML ONE (23:08)
[2020-05-14] MEDS ORDERED: Sodium Chloride 0.9% 10 ML Syringe FLUSH PRN (23:11)
[2020-05-14] MEDS ORDERED: Sodium Chloride 0.9% 1,000 ML IV SCH (23:15)
[2020-05-14] MEDS ORDERED: Adenosine 12 MG/4 ML SDV IVPUSH ONE ×2 (23:19)
--- NOTE | 2020-05-14 23:20 | EDM.PDOC ---
ED HPI GENERAL MEDICAL PROBLEM - General Chief Complaint: Chest Pain Stated Complaint: chest tightness Time Seen by Provider: 05/14/20 23:09 Source of Information: Reports: Patient - History of Present Illness INITIAL COMMENTS - FREE TEXT/NARRATIVE: Gustavo Granda, 74-year-old male, presents emergency department with chest pressure and shortness of breath. States this started roughly at 930 this evening and has sustained itself leading to increasing shortness of breath and some abdominal irritation. He states he took 1 aspirin this evening 81 mg with no improvement and finally decided to come in for evaluation. This it occurred yesterday as well and he presented to the clinic and was evaluated by Dr. Yoandy De Anda with EKG obtained at that time showing no concern. He states he was feeling well at the time of the appointment. It recurred this evening, symptoms similar to prior his appointment with Dr. De Anda and Was more involved with pressure as well has shortness of breath. Denies any fever chills, denies any claudication or calf pain. Denies any immobilization other than the procedure and the time thereafter with his only travel being the [address] No additional DVT or clotting risks. Onset: Today, Sudden Onset Date: 05/14/20 Onset Time: 21:30 Duration: Hour(s): Location: Reports: Chest Quality: Reports: Pressure Severity: Moderate Improves with: Reports: None Worsens with: Reports: Movement Context: Reports: Other Associated Symptoms: Reports: No Other Symptoms - Related Data Allergies Allergy/AdvReac Type Severity Reaction Status Date / Time No Known Drug Allergies Allergy Cannot Verified 05/14/20 23:07 Remember Home Meds: Home Meds atorvaSTATin Calcium [Atorvastatin Calcium] 40 mg PO DAILY 02/22/15 [History] Sildenafil Citrate 20 mg PO DAILY PRN 12/03/16 [History] Clopidogrel Bisulfate [Clopidogrel] 75 mg PO DAILY 12/29/16 [History] Dutasteride 0.5 mg PO BEDTIME 09/01/18 [History] Terazosin [Hytrin] 1 mg PO BEDTIME 09/01/18 [History] Aspirin [Aspirin EC] 81 mg PO DAILY 05/15/20 [History] Diclofenac Sodium 2 g TOP BID 05/15/20 [History] Isosorbide Mononitrate [Imdur] 30 mg PO DAILY 05/15/20 [History] Losartan [Cozaar] 100 mg PO DAILY 05/15/20 [History] carvediloL [Carvedilol] 6.25 mg PO BID 05/15/20 [History] Past Medical History HEENT History: Reports: None Cardiovascular History: Reports: High Cholesterol, Hypertension, Stents Other Cardiovascular History: 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, cardiac arrest Respiratory History: Reports: None Gastrointestinal History: Reports: GERD Other Gastrointestinal History: torn esophagus Genitourinary History: Reports: Renal Calculus Musculoskeletal History: Reports: None Neurological History: Reports: None Psychiatric History: Reports: None Endocrine/Metabolic History: Reports: None Hematologic History: Reports: None Dermatologic History: Reports: None - Infectious Disease History Infectious Disease History: Reports: Pertussis (Whooping Cough) - Past Surgical History Cardiovascular Surgical History: Reports: Coronary Artery Stent, Pacer, Percutaneous Transluminal Angioplasty Social & Family History - Family History Family Medical History: No Pertinent Family History - Tobacco Use Tobacco Use Status *Q: Former Tobacco User - Caffeine Use Caffeine Use: Reports: Soda - Alcohol Use Alcohol Use History: No - Living Situation & Occupation Living situation: Reports: with Significant Other Occupation: Employed ED ROS GENERAL - Review of Systems Review Of Systems: Comprehensive ROS is negative, except as noted in HPI. Constitutional: Reports: No Symptoms HEENT: Reports: No Symptoms Respiratory: Reports: Shortness of Breath Cardiovascular: Reports: Other (chest pressure) GI/Abdominal: Reports: Other (abdominal irritation ) : Reports: No Symptoms Musculoskeletal: Reports: No Symptoms Skin: Reports: No Symptoms (area of pacemaker insertion bruised and tender) Neurological: Reports: No Symptoms Psychiatric: Reports: No Symptoms Hematologic/Lymphatic: Reports: No Symptoms Immunologic: Reports: No Symptoms ED EXAM, GENERAL - Physical Exam Exam: See Below Free Text/Narrative:: Alert, oriented, with mild pallor. Hypotension is noted with a weak radial pulse bilateral he is able to converse freely stating his breathing is the main concern with minimal dizziness symptoms. HEENT is negative to discharge or deformity. [place] moist mucous membranes Neck is soft supple I do not appreciate any bruit nor JVD nor rigidity. Thorax is overall clear mildly diminished at the bases there is fresh incision site with bruising and healing from his pacemaker insertion 1 week ago yesterday. Tenderness in the surrounding tissue. Cardiac is very rapid, I do not appreciate any murmur. Bedside monitor shows SVT 160's to 180's. Abdomen is soft no megaly no distention, bowel sounds are present. rectal deferred. +1 edema to the lower extremities with warm dry skin. ED GENERAL MEDICAL PROCEDURES - Additional/Other Procedure(s) Other (Free Text) Procedure(s): Adenosine was administered 6 mg IV rapid with rapid flush following. We did initially convert to sinus with trigeminal PVC initially, rate picked back up into the 160s. 12 mg adenosine administered rapidly with flush, with this time converting in the 60s which activated his pacemaker. Occasional trigeminal PVC was noted, this resolved with occasional PVC showing with heart rate then again pacemaker taking over in full paced mode with heart rate coming up 71 at which time pacer shut off and has maintained sinus since then with occasional pacemaker firing. He states he feels quite well, "good enough to go home". #1 Interpretation EKG Date: 05/14/20 Time: 23:04 Rhythm: Other Rate (Beats/Min): 159 [place]: Normal QRS: Normal ST-T: Normal QT: Normal Comparison: Change From Previous EKG (SSVT) #2 Interpretation EKG Date: 05/14/20 Time: 23:46 Rhythm: NSR Rate (Beats/Min): 71 [place]: LAD-Left [place] Deviation P-Wave: Present QRS: LBBB ST-T: Normal QT: Normal Comparison: Change From Previous EKG (post adenosine conversion) Course - Vital Signs Last Recorded V/S: Last Vital Signs Temp 97 F 05/15/20 01:00 Pulse 60 05/15/20 01:00 Resp 16 05/15/20 01:00 BP 120/80 05/15/20 01:00 Pulse Ox 97 05/15/20 01:00 - Orders/Labs/Meds Orders: Active Orders 24 hr Category Date Time Status EKG Documentation Completion [RC] ASDIRECTED Care 05/14/20 23:11 Ordered EKG Documentation Completion [RC] ASDIRECTED Care 05/14/20 23:41 Ordered Peripheral IV Care [RC] . DIRECTED Care 05/14/20 23:11 Active CTA Chest W WO Contrast [Ang Chest] [CT] Stat Exams 05/14/20 23:51 Ordered Chest 1V Frontal [CR] Stat Exams 05/14/20 23:10 Ordered Heparin Sodium/D5W 250 ml Med 05/15/20 01:30 Active IV TITRATE Sodium Chloride 0.9% @ 150 MLS/HR (1000ml) Med 05/14/20 23:15 Ordered Sodium Chloride 0.9% [Normal Saline] 1,000 ml IV ASDIRECTED Sodium Chloride 0.9% [Normal Saline] 50 ml Med 05/14/20 23:45 Active IV ASDIRECTED Sodium Chloride 0.9% [Saline Flush] Med 05/14/20 23:11 Ordered 10 ml FLUSH Q8HR PRN Peripheral IV Insertion Adult [OM.PC] Routine Oth 05/14/20 23:11 Ordered EKG 12 Lead [EK] Stat Ther 05/14/20 23:10 Ordered EKG 12 Lead [EK] Urgent Ther 05/14/20 23:41 Ordered Medication Orders Sodium Chloride (Normal Saline) 1,000 mls @ 150 mls/hr IV ASDIRECTED JASON Last Admin: 05/14/20 23:18 Dose: 150 mls/hr Documented by: CALESIL Sodium Chloride (Normal Saline) 50 mls @ 200 mls/min IV ASDIRECTED JASON Last Admin: 05/15/20 00:25 Dose: 200 mls/min Documented by: ENDECAY Heparin Sodium/Dextrose () 250 mls @ 1,244.656 mls/hr IV TITRATE JASON Sodium Chloride (Saline Flush) 10 ml FLUSH Q8HR PRN PRN Reason: keep vein open Labs: Laboratory Tests 05/14/20 05/14/20 05/14/20 Range/Units 00:01 23:05 23:05 WBC 9.95 (5.00-10.00) 10^3/uL RBC 4.48 L (4.50-6.00) 10^6/uL Hgb 14.2 (13.0-17.0) g/dL Hct 41.9 (40.0-52.0) % MCV 93.5 H (82.0-92.0) fL MCH 31.7 H (27.0-31.0) pg MCHC 33.9 (32.0-36.0) g/dL RDW 12.8 (11.5-14.5) % Plt Count 247 (150-400) 10^3/uL MPV 11.3 H (7.4-10.4) fL Immature Gran % (Auto) 0.1 (0.0-5.0) % Neut % (Auto) 60.1 (50.0-70.0) % Lymph % (Auto) 25.5 (20.0-40.0) % [place] % (Auto) 9.7 H (2.0-8.0) % Eos % (Auto) 3.9 H (1.0-3.0) % Baso % (Auto) 0.7 (0.0-1.0) % Neut # (Auto) 5.97 (2.50-7.00) 10^3/uL Lymph # (Auto) 2.54 (1.00-4.00) 10^3/uL [place] # (Auto) 0.97 H (0.10-0.80) 10^3/uL Eos # (Auto) 0.39 H (0.10-0.30) 10^3/uL Baso # (Auto) 0.07 (0.00-0.10) 10^3/uL Immature Gran # (Auto) 0.01 (0.00-0.50) 10^3/uL APTT 26.5 (22.8-31.4) SEC D-Dimer, Quantitative (<400) ng/mL Sodium 141 (136-145) mmol/L Potassium 4.1 (3.5-5.1) mmol/L Chloride 106 (98-107) mmol/L Carbon Dioxide 26.8 (21.0-32.0) mmol/L Anion Gap 12.3 (5-15) mmol/L BUN 21 H (7-18) mg/dL Creatinine 0.91 (0.51-1.17) mg/dL Est Cr Clr Drug Dosing 67.86 mL/min Estimated GFR (MDRD) > 60 mL/min Glucose 121 (70-140) mg/dL Calcium 10.2 (8.7-10.3) mg/dL Total Bilirubin 0.4 (0.2-1.0) mg/dL AST 15 (15-37) U/L ALT 28 (14-63) U/L Alkaline Phosphatase 85 (46-116) U/L Creatine Kinase 39 (26-276) U/L CK-MB (CK-2) 0.89 (0.00-3.60) ng/mL Troponin I 0.091 H* (0.000-0.056) ng/mL B-Natriuretic Peptide 223 H (0-100) pg/mL Total Protein 6.8 (6.4-8.2) g/dL Albumin 3.26 L (3.40-5.00) g/dL SARS CoV-2 RNA Rapid LEAH (NEGATIVE) 05/14/20 05/14/20 Range/Units 23:05 23:50 WBC (5.00-10.00) 10^3/uL RBC (4.50-6.00) 10^6/uL Hgb (13.0-17.0) g/dL Hct (40.0-52.0) % MCV (82.0-92.0) fL MCH (27.0-31.0) pg MCHC (32.0-36.0) g/dL RDW (11.5-14.5) % Plt Count (150-400) 10^3/uL MPV (7.4-10.4) fL Immature Gran % (Auto) (0.0-5.0) % Neut % (Auto) (50.0-70.0) % Lymph % (Auto) (20.0-40.0) % [place] % (Auto) (2.0-8.0) % Eos % (Auto) (1.0-3.0) % Baso % (Auto) (0.0-1.0) % Neut # (Auto) (2.50-7.00) 10^3/uL Lymph # (Auto) (1.00-4.00) 10^3/uL [place] # (Auto) (0.10-0.80) 10^3/uL Eos # (Auto) (0.10-0.30) 10^3/uL Baso # (Auto) (0.00-0.10) 10^3/uL Immature Gran # (Auto) (0.00-0.50) 10^3/uL APTT (22.8-31.4) SEC D-Dimer, Quantitative 1230 H (<400) ng/mL Sodium (136-145) mmol/L Potassium (3.5-5.1) mmol/L Chloride (98-107) mmol/L Carbon Dioxide (21.0-32.0) mmol/L Anion Gap (5-15) mmol/L BUN (7-18) mg/dL Creatinine (0.51-1.17) mg/dL Est Cr Clr Drug Dosing mL/min Estimated GFR (MDRD) mL/min Glucose (70-140) mg/dL Calcium (8.7-10.3) mg/dL Total Bilirubin (0.2-1.0) mg/dL AST (15-37) U/L ALT (14-63) U/L Alkaline Phosphatase (46-116) U/L Creatine Kinase (26-276) U/L CK-MB (CK-2) (0.00-3.60) ng/mL Troponin I (0.000-0.056) ng/mL B-Natriuretic Peptide (0-100) pg/mL Total Protein (6.4-8.2) g/dL Albumin (3.40-5.00) g/dL SARS CoV-2 RNA Rapid LEAH Negative (NEGATIVE) Meds: Medications Generic Name Dose Route Start Last Admin Trade Name Nelida PRN Reason Stop Dose Admin Sodium Chloride 1,000 mls @ 150 mls/hr 05/14/20 23:15 05/14/20 23:18 Normal Saline IV 150 mls/hr ASDIRECTED JASON Administration Sodium Chloride 50 mls @ 200 mls/min 05/14/20 23:45 05/15/20 00:25 Normal Saline IV 200 mls/min ASDIRECTED JASON Administration Heparin Sodium/Dextrose 250 mls @ 1,244.656 mls/hr 05/15/20 01:30 IV TITRATE JASON 1,400 UNITS/KG/HR Sodium Chloride 10 ml 05/14/20 23:11 Saline Flush FLUSH Q8HR PRN keep vein open Discontinued Medications Generic Name Dose Route Start Last Admin Trade Name Freq PRN Reason Stop Dose Admin Adenosine 6 mg 05/14/20 23:19 05/14/20 23:30 Adenocard IVPUSH 05/14/20 23:20 6 mg NOW ONE Administration Adenosine 12 mg 05/14/20 23:19 05/14/20 23:33 Adenocard IVPUSH 05/14/20 23:20 12 mg NOW ONE Administration Aspirin Confirm 05/14/20 23:08 05/15/20 01:03 Aspirin Administered 05/14/20 23:09 243 mg Dose Administration 324 mg .ROUTE .STK-MED ONE Heparin Sodium (Porcine) 4,000 units 05/15/20 01:20 Heparin Sodium IVPUSH 05/15/20 01:21 .BOLUS ONE Sodium Chloride Confirm 05/14/20 23:08 05/14/20 23:38 Normal Saline Administered 05/14/20 23:09 Not Given Dose 1,000 mls @ as directed .ROUTE .STK-MED ONE Iopamidol 75 ml 05/14/20 23:49 05/15/20 00:25 Isovue-370 (76%) IVPUSH 05/14/20 23:50 75 ml ONETIME ONE Administration Departure - Departure Time of Disposition: :26 Disposition: DC/Tfer to Acute Hospital 02 Condition: Fair Clinical Impression: Acute coronary syndrome, Elevated brain natriuretic peptide (BNP) level, Elevated d-dimer, Elevated troponin, Paroxysmal SVT (supraventricular tachycardia), Pressure in chest, S/P cardiac pacemaker procedure - Discharge Information *PRESCRIPTION DRUG MONITORING PROGRAM REVIEWED*: Not Applicable *COPY OF PRESCRIPTION DRUG MONITORING REPORT IN PATIENT WILDER: Not Applicable Referrals: Ivania De Anda MD [Primary Care Provider] - Forms: ED Department Discharge, Interfacility Transfer ROSALINDALA Additional Instructions: Contact [facility] Dr. Boby Herrera excepting for ALS transfer to the CDU room 14 Sepsis Event Note (ED) - Focused Exam Vital Signs: Vital Signs Temp Pulse Resp BP Pulse Ox 05/15/20 01:00 97 F 60 16 120/80 97 05/15/20 00:15 67 14 134/69 99 05/15/20 00:13 66 119/74 99 05/14/20 23:50 69 16 126/80 98 05/14/20 23:39 96.6 F L 160 H 20 104/73 98 05/14/20 23:35 70 19 132/88 97 05/14/20 23:30 70 55/37 L 05/14/20 23:05 160 H 20 92/77 95 ED Communication - ED Communication Date/Time Date: 05/15/20 Time Called: 01:10 - Discussed Case With (1) Discussed Case With (1): Admitting Provider Person/s Notified (1): Boby Herrera (IM) - Conversation Summary Admitting Provider Agreed to Patient's Admission: Yes Shelving Supervisor Accepted Inpatient Consultation: Yes Patient Aware of Amendments fo Care Plan: Yes - Problem List & Annotations (1) Pressure in chest SNOMED Code(s): 624508974 Code(s): R07.89 - OTHER CHEST PAIN Status: Acute Current Visit: Yes (2) SOB (shortness of breath) SNOMED Code(s): 529517817 Code(s): R06.02 - SHORTNESS OF BREATH Status: Acute Priority: Medium Current Visit: Yes (3) Paroxysmal SVT (supraventricular tachycardia) SNOMED Code(s): 95117458 Code(s): I47.1 - SUPRAVENTRICULAR TACHYCARDIA Status: Acute Priority: High Current Visit: Yes (4) Elevated troponin SNOMED Code(s): 759816692, 887816225, 977257145 Code(s): R74.8 - ABNORMAL LEVELS OF OTHER SERUM ENZYMES Status: Acute Priority: High Current Visit: Yes (5) Elevated d-dimer SNOMED Code(s): 063246843 Code(s): R79.89 - OTHER SPECIFIED ABNORMAL FINDINGS OF BLOOD CHEMISTRY Status: Acute Priority: High Current Visit: Yes (6) S/P cardiac pacemaker procedure SNOMED Code(s): 620431535, 161705712, 787704474 Code(s): Z95.0 - PRESENCE OF CARDIAC PACEMAKER Status: Acute Priority: High Current Visit: Yes (7) Elevated brain natriuretic peptide (BNP) level SNOMED Code(s): 438941597, 027373671 Code(s): R79.89 - OTHER SPECIFIED ABNORMAL FINDINGS OF BLOOD CHEMISTRY Status: Acute Priority: Medium Current Visit: Yes (8) Kidney lesion, [place], right SNOMED Code(s): 73941365 Code(s): N28.9 - DISORDER OF KIDNEY AND URETER, UNSPECIFIED Status: Acute Priority: Medium Current Visit: Yes (9) Thyroid nodule SNOMED Code(s): 607780107 Code(s): E04.1 - NONTOXIC SINGLE THYROID NODULE Status: Acute Priority: Medium Current Visit: Yes - Problem List Review Problem List Initiated/Reviewed/Updated: Yes - My Orders Last 24 Hours: My Active Orders 05/14/20 23:10 Chest 1V Frontal [CR] Stat EKG 12 Lead [EK] Stat 05/14/20 23:11 EKG Documentation Completion [RC] ASDIRECTED Peripheral IV Care [RC] . DIRECTED Sodium Chloride 0.9% [Saline Flush] 10 ml FLUSH Q8HR PRN Peripheral IV Insertion Adult [OM.PC] Routine 05/14/20 23:15 Sodium Chloride 0.9% @ 150 MLS/HR (1000ml) Sodium Chloride 0.9% [Normal Saline] 1,000 ml IV ASDIRECTED 05/14/20 23:41 EKG Documentation Completion [RC] ASDIRECTED EKG 12 Lead [EK] Urgent 05/14/20 23:45 Sodium Chloride 0.9% [Normal Saline] 50 ml IV ASDIRECTED 05/14/20 23:51 CTA Chest W WO Contrast [Ang Chest] [CT] Stat 05/15/20 01:30 Heparin Sodium/D5W 250 ml IV TITRATE - Assessment/Plan Last 24 Hours: My Active Orders 05/14/20 23:10 Chest 1V Frontal [CR] Stat EKG 12 Lead [EK] Stat 05/14/20 23:11 EKG Documentation Completion [RC] ASDIRECTED Peripheral IV Care [RC] . DIRECTED Sodium Chloride 0.9% [Saline Flush] 10 ml FLUSH Q8HR PRN Peripheral IV Insertion Adult [OM.PC] Routine 05/14/20 23:15 Sodium Chloride 0.9% @ 150 MLS/HR (1000ml) Sodium Chloride 0.9% [Normal Saline] 1,000 ml IV ASDIRECTED 05/14/20 23:41 EKG Documentation Completion [RC] ASDIRECTED EKG 12 Lead [EK] Urgent 05/14/20 23:45 Sodium Chloride 0.9% [Normal Saline] 50 ml IV ASDIRECTED 05/14/20 23:51 CTA Chest W WO Contrast [Ang Chest] [CT] Stat 05/15/20 01:30 Heparin Sodium/D5W 250 ml IV TITRATE Plan: Contact [facility] Dr. Boby Herrera excepting for ALS transfer to the CDU room 14
[2020-05-14] MEDS: Aspirin 81 MG Tab.Chew ONE (23:37)
[2020-05-14 23:45] LABS: ANION GAP 12.3 mmol/L (5-15); CHLORIDE,CL 106 mmol/L (98-107); SODIUM,NA 141 mmol/L (136-145)
[2020-05-14] MEDS ORDERED: Sodium Chloride 0.9% 50 ML IV SCH (23:45)
[2020-05-14] MEDS ORDERED: Iopamidol 755 Mg/ML 75 ML Bottle IVPUSH ONE (23:49)
[2020-05-15] MEDS: Aspirin 81 MG Tab.Chew ONE (01:03)
[2020-05-15 01:12] VITALS: BP 120/80; PULSE 60
[2020-05-15] MEDS ORDERED: Heparin Sodium 5,000 Units/ML Vial IVPUSH ONE (01:20)
[2020-05-15] MEDS ORDERED: Heparin Sodium/D5W 250 ML IV SCH ×2 (01:30→02:15)
--- NOTE | 2020-05-15 08:32 | CT ---
[id number] CT/CTA Chest EXAM: CTA Chest CLINICAL DATA: ELEVATED D DIMER, CHEST PRESSURE, ELEVATED TROPONIN COMPARISON STUDY: CT from November 12, 2018. FINDINGS: Lungs: Small bilateral pleural effusions and bibasal dependent atelectasis. No evidence of pneumonia. No pneumothorax or pulmonary edema. Mediastinum: No mediastinal or hilar lymphadenopathy. Heart and great vessels: Cardiomegaly and coronary artery atherosclerosis. Trace pericardial fluid. Left chest wall cardiac conduction device in place. Negative for pulmonary embolus. Bones: No acute fracture or compression deformity. Spondylosis. Benign-appearing enchondroma in the proximal humeral metaphysis. Upper abdomen: Bilateral nonobstructing calculi. Multiple hypodense masses in both kidneys. Findings are most consistent with cortical and sinus cysts, correlating with findings on examination from November 2018. IMPRESSION: Negative for pulmonary embolus. Small bilateral pleural effusions and trace pericardial effusion of uncertain etiology or clinical significance. Other findings are described above. Hesham York MD 05/15/20 0831 Thank you for allowing us to participate in the care of your patient.
--- NOTE | 2020-05-15 08:48 | CR ---
[id number] RAD/RAD Chest PA or AP 1V EXAM: FRONTAL CHEST INDICATION: CHEST PAIN COMPARISON: December 03, 2016. DISCUSSION: Hypoinflation with central vascular crowding and mild basilar atelectasis or scarring which is similar to previous studies. This could obscure other underlying pathology. Stable mild cardiomegaly without evidence of edema. Left subclavian approach pacemaker leads RA and RV. No effusions. IMPRESSION: 1. Low lung volumes. Otherwise negative examination. Peewee Segura MD 05/15/20 0865 Thank you for allowing us to participate in the care of your patient.
== END 2020-05-15 05:00 ==
LOC: KA.ED 22:50
DX: I24.9 Acute ischemic heart disease, unspecified (principal); R79.89 Other specified abnormal findings of blood chemistry; R79.1 Abnormal coagulation profile; I47.1 Supraventricular tachycardia; E78.00 Pure hypercholesterolemia, unspecified; I10 Essential (primary) hypertension; Z95.0 Presence of cardiac pacemaker; Z20.822 Contact with and (suspected) exposure to COVID-19; Z79.82 Long term (current) use of aspirin; Z79.02 Long term (current) use of antithrombotics/antiplatelets; Z79.899 Other long term (current) drug therapy; Z87.891 Personal history of nicotine dependence; R06.02 Shortness of breath
CPT/HCPCS: 36415; 71045; 71275; 80053; 82550; 82553; 83880; 84484; 85025; 85379; 85730; 93005; 96365; 96374; 99285; 99285-25; A9270-GY; J0153; J1644; J7030; Q9967; U0002

== ENCOUNTER 2020-05-19 00:42 | Emergency (ER) | payer MEDICARE, BC ==
[2020-05-19] MEDS ORDERED: Amiodarone 150 MG/3 ML SDV IVPUSH ONE (01:32)
[2020-05-19] MEDS ORDERED: Amiodarone In Dextrose,Iso-Osm 360 MG in Premix Bag 1 BAG IV SCH ×2 (01:45)
[2020-05-19 01:55] LABS: ANION GAP 12.4 mmol/L (5-15); CHLORIDE,CL 105 mmol/L (98-107); SODIUM,NA 139 mmol/L (136-145)
[2020-05-19] MEDS ORDERED: Sodium Chloride 0.9% 0 ML ONE (01:56)
--- NOTE | 2020-05-19 02:21 | EDM.PDOC ---
ED HPI GENERAL MEDICAL PROBLEM - General Chief Complaint: Chest Pain Stated Complaint: chest pain Time Seen by Provider: 05/19/20 01:16 Source of Information: Reports: Patient, Significant Other History Limitations: Reports: No Limitations - History of Present Illness INITIAL COMMENTS - FREE TEXT/NARRATIVE: Patient presents with chest pain. Actually the pain resolved before he arrived but he came in to get checked. At admission to ER an EKG was obtained showing sinus bradycardia with PVC's. A few minutes later it changed to V-tach at 144 rate. He was here with the same thing 5 days ago he says except rate was 170 then. He was given adenosine and transferred to [place]. He just got home from [facility] two days ago and felt okay until this evening. He had a pace maker placed 2 weeks ago also. When the V-tach started his chest pain returned. He says the pain is low left ribcage to upper abdomen more than in his chest. He denies any history of CO. He was started on digoxin a few days ago in [place]. Chest Pain Score (Numeric/FACES): 5 - Related Data Allergies Allergy/AdvReac Type Severity Reaction Status Date / Time No Known Drug Allergies Allergy Cannot Verified 05/19/20 02:16 Remember Home Meds: Home Meds atorvaSTATin Calcium [Atorvastatin Calcium] 40 mg PO BEDTIME 02/22/15 [History] Sildenafil Citrate 20 mg PO DAILY PRN 12/03/16 [History] Clopidogrel Bisulfate [Clopidogrel] 75 mg PO DAILY 12/29/16 [History] Dutasteride 0.5 mg PO BEDTIME 09/01/18 [History] Terazosin [Hytrin] 4 mg PO BEDTIME 09/01/18 [History] Aspirin [Aspirin EC] 81 mg PO DAILY 05/15/20 [History] Diclofenac Sodium 2 g TOP BID 05/15/20 [History] Isosorbide Mononitrate [Imdur] 30 mg PO DAILY 05/15/20 [History] Losartan [Cozaar] 100 mg PO DAILY 05/15/20 [History] carvediloL [Carvedilol] 6.25 mg PO BID 05/15/20 [History] Past Medical History HEENT History: Reports: None, Other (See Below) Other HEENT History: readers. had all upper teeth pulled Cardiovascular History: Reports: High Cholesterol, Hypertension, Pacemaker, Stents Other Cardiovascular History: 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, cardiac arrest ? pacer new 1 week ago Respiratory History: Reports: None Gastrointestinal History: Reports: GERD, Other (See Below) Other Gastrointestinal History: torn esophagus. feels constipated now Genitourinary History: Reports: Prostate Disorder, Renal Calculus, Other (See Below) Other Genitourinary History: uses med to void Musculoskeletal History: Reports: None Neurological History: Reports: None Psychiatric History: Reports: None Endocrine/Metabolic History: Reports: None Hematologic History: Reports: None Oncologic (Cancer) History: Reports: None Dermatologic History: Reports: None - Infectious Disease History Infectious Disease History: Reports: Pertussis (Whooping Cough) - Past Surgical History Cardiovascular Surgical History: Reports: Coronary Artery Stent, Pacer, Percutaneous Transluminal Angioplasty Social & Family History - Family History Family Medical History: No Pertinent Family History - Caffeine Use Caffeine Use: Reports: Soda, Other Other Caffeine Use: decaff coffee. diet coke - 4-6 cans/day - Living Situation & Occupation Living situation: Reports: with Significant Other Occupation: Employed ED ROS GENERAL - Review of Systems Review Of Systems: See Below Constitutional: Denies: Fever, Chills, Weakness HEENT: Denies: Ear Pain, Throat Pain, Vision Change Respiratory: Denies: Shortness of Breath, Cough Cardiovascular: Reports: Chest Pain. Denies: Lightheadedness, Syncope Endocrine: Denies: Fatigue GI/Abdominal: Reports: Abdominal Pain. Denies: Diarrhea, Vomiting : Denies: Dysuria Musculoskeletal: Denies: Neck Pain, Shoulder Pain, Arm Pain, Back Pain, Hand Pain Skin: Denies: Cyanosis, Jaundice, Mottled, Pallor, Diaphoresis Neurological: Denies: Confusion, Dizziness, Headache, Seizure, Syncope, Trouble Speaking Psychiatric: Denies: Agitation, Anxiety, Confusion ED EXAM, GENERAL - Physical Exam Exam: See Below Exam Limited By: No Limitations General Appearance: Alert, WD/WN, No Apparent Distress Eye Exam: Bilateral Eye: EOMI, Normal Inspection, PERRL Ears: Normal External Exam, Hearing Grossly Normal Nose: Normal Inspection, No Blood Throat/Mouth: Normal Inspection, Normal Lips, Normal Voice, No Airway Compromise Head: Atraumatic, Normocephalic Neck: Normal Inspection, Full Range of Motion Respiratory/Chest: No Respiratory Distress, Lungs Clear, Normal Breath Sounds Cardiovascular: Normal Peripheral Pulses, Tachycardia GI/Abdominal: Soft, Non-Tender, No Organomegaly, No Distention Back Exam: Normal Inspection, Full Range of Motion Extremities: Normal Inspection, Normal Range of Motion Neurological: Alert, Oriented, Normal Cognition, No Motor/Sensory Deficits Psychiatric: Normal Affect, Normal Mood Skin Exam: Warm, Dry, Intact, Normal Color, No Rash Course - Vital Signs Last Recorded V/S: Last Vital Signs Temp 96.6 F L 05/19/20 00:42 Pulse 68 05/19/20 00:42 Resp 21 H 05/19/20 00:42 BP 138/83 05/19/20 00:42 Pulse Ox 97 05/19/20 00:42 - Orders/Labs/Meds Orders: Active Orders 24 hr Category Date Time Status Amiodarone In Dextrose,Iso-Osm [Nexterone in Dextrose Med 05/19/20 01:45 Ordered 360 MG/200 ML] 360 mg Premix Bag 1 bag IV ASDIRECTED Medication Orders Amiodarone HCl/Dextrose 360 mg (/ Premix) 200 mls @ 33.3 mls/hr IV ASDIRECTED JASON; Protocol Last Admin: 05/19/20 02:06 Dose: 33.3 mls/hr Documented by: MAX Labs: Laboratory Tests 05/19/20 05/19/20 Range/Units 01:20 01:20 WBC 11.65 H (5.00-10.00) 10^3/uL RBC 4.66 (4.50-6.00) 10^6/uL Hgb 14.6 (13.0-17.0) g/dL Hct 43.5 (40.0-52.0) % MCV 93.3 H (82.0-92.0) fL MCH 31.3 H (27.0-31.0) pg MCHC 33.6 (32.0-36.0) g/dL RDW 12.8 (11.5-14.5) % Plt Count 242 (150-400) 10^3/uL MPV 11.7 H (7.4-10.4) fL Immature Gran % (Auto) 0.3 (0.0-5.0) % Neut % (Auto) 64.0 (50.0-70.0) % Lymph % (Auto) 21.2 (20.0-40.0) % [place] % (Auto) 10.3 H (2.0-8.0) % Eos % (Auto) 3.8 H (1.0-3.0) % Baso % (Auto) 0.4 (0.0-1.0) % Neut # (Auto) 7.45 H (2.50-7.00) 10^3/uL Lymph # (Auto) 2.47 (1.00-4.00) 10^3/uL [place] # (Auto) 1.20 H (0.10-0.80) 10^3/uL Eos # (Auto) 0.44 H (0.10-0.30) 10^3/uL Baso # (Auto) 0.05 (0.00-0.10) 10^3/uL Immature Gran # (Auto) 0.04 (0.00-0.50) 10^3/uL Sodium 139 (136-145) mmol/L Potassium 4.2 (3.5-5.1) mmol/L Chloride 105 (98-107) mmol/L Carbon Dioxide 25.8 (21.0-32.0) mmol/L Anion Gap 12.4 (5-15) mmol/L BUN 16 (7-18) mg/dL Creatinine 0.98 (0.51-1.17) mg/dL Est Cr Clr Drug Dosing TNP Estimated GFR (MDRD) > 60 mL/min Glucose 112 (70-140) mg/dL Calcium 9.9 (8.7-10.3) mg/dL Magnesium 2.2 (1.8-2.4) mg/dL Total Bilirubin 0.5 (0.2-1.0) mg/dL AST 12 L (15-37) U/L ALT 20 (14-63) U/L Alkaline Phosphatase 94 (46-116) U/L Troponin I < 0.017 (0.000-0.056) ng/mL Total Protein 6.8 (6.4-8.2) g/dL Albumin 3.28 L (3.40-5.00) g/dL Meds: Medications Generic Name Dose Route Start Last Admin Trade Name Freq PRN Reason Stop Dose Admin Amiodarone HCl/Dextrose 360 mg 200 mls @ 33.3 mls/hr 05/19/20 01:45 05/19/20 02:06 / Premix IV 33.3 mls/hr ASDIRECTED JASON Administration Protocol Discontinued Medications Generic Name Dose Route Start Last Admin Trade Name Nelida PRN Reason Stop Dose Admin Amiodarone HCl 150 mg 05/19/20 01:32 05/19/20 01:47 Cordarone IVPUSH 05/19/20 01:33 150 mg ONETIME ONE Administration Sodium Chloride Confirm 05/19/20 01:56 Normal Saline Administered 05/19/20 01:57 Dose 500 mls @ as directed .ROUTE .[facility] ONE - Re-Assessments/Exams Free Text/Narrative Re-Assessment/Exam: 05/19/20 02:33 [facility] was consulted soon after V-tach noted. Amiodarone was bolused followed by drip. The bolus did convert HR from 140s to 70s. [facility] arranged transfer and flight. Patient okay with plan. Dr. Nevarez and Dr. Fiore are accepting. Patient is as stable as we can get him. Pain is gone. 05/19/20 02:35 He will be going by fixed wing flight and ambulance shuttles. Departure - Departure Time of Disposition: 02:36 Disposition: DC/Tfer to Acute Hospital 02 Reason for Transfer *Q: Other Condition: Fair Clinical Impression: Ventricular tachyarrhythmia Pacemaker complications Qualifiers: Encounter type: subsequent encounter Qualified Code(s): T82.9XXD - Unspecified complication of cardiac and vascular prosthetic device, implant and graft, subsequent encounter Forms: ED Department Discharge Sepsis Event Note (ED) - Focused Exam Vital Signs: Vital Signs Temp Pulse Resp BP Pulse Ox 05/19/20 00:42 96.6 F L 68 21 H 138/83 97 - My Orders Last 24 Hours: My Active Orders 05/19/20 01:45 Amiodarone In Dextrose,Iso-Osm [Nexterone in Dextrose 360 MG/200 ML] 360 mg Premix Bag 1 bag IV ASDIRECTED - Assessment/Plan Last 24 Hours: My Active Orders 05/19/20 01:45 Amiodarone In Dextrose,Iso-Osm [Nexterone in Dextrose 360 MG/200 ML] 360 mg Premix Bag 1 bag IV ASDIRECTED
[2020-05-19 05:51] VITALS: BP 111/70; PULSE 65
== END 2020-05-19 03:23 ==
LOC: SUPCPDRO 00:42 → KA.ED 00:42
DX: T82.199A Other mechanical complication of unspecified cardiac device, initial encounter (principal); I47.2 Ventricular tachycardia; E78.00 Pure hypercholesterolemia, unspecified; I10 Essential (primary) hypertension; N42.9 Disorder of prostate, unspecified; Z79.82 Long term (current) use of aspirin; Z79.02 Long term (current) use of antithrombotics/antiplatelets; Z79.899 Other long term (current) drug therapy
CPT/HCPCS: 36415; 80053; 83735; 84484; 85025; 93005; 96365; 99284; 99285-25; J0282

== ENCOUNTER 2020-07-09 20:33 | Emergency (ER) | payer MEDICARE, BC ==
[2020-07-09] MEDS ORDERED: LORazepam 0.5 MG Tab PO ONE (20:58)
[2020-07-09] MEDS ORDERED: Labetalol 100 MG/20 ML MDV IVPUSH ONE (21:30)
[2020-07-09] MEDS ORDERED: Sodium Chloride 0.9% 10 ML Syringe FLUSH PRN (21:35)
--- NOTE | 2020-07-09 21:37 | EDM.PDOC ---
ED HPI GENERAL MEDICAL PROBLEM - General Chief Complaint: General Stated Complaint: HIGH BLOOD PRESSURE?? Time Seen by Provider: 07/09/20 21:20 Source of Information: Reports: Patient History Limitations: Reports: No Limitations - History of Present Illness INITIAL COMMENTS - FREE TEXT/NARRATIVE: Patient presents with elevated blood pressure. He takes Carvedilol and Losartan. He says normally his pressure runs 130/70 but was a little higher this morning too. He saw his PCP Dr. Cho in clinic this morning and was high then too. 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 This seemed to cause lightheadedness so he was just taking two in the morning and one tab at night. Today Dr. Cho suggested he try 1.5 tabs at night. Tonight he took it a little later than usual and took one tab then felt his pressure was high so took another one. It was still high 30 minutes later so came to ER. We reviewed clinic note and noticed that his med list shows that he takes Carvedilol 50 mg bid (2-25 mg tabs morning and night). Patient doesn't know what that is all about. He is scheduled to see Dr. Cho tomorrow in clinic for a recheck again. 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 Medication(s) - Related Data Allergies Allergy/AdvReac Type Severity Reaction Status Date / Time No Known Drug Allergies Allergy Cannot Verified 05/19/20 02:16 Remember Home Meds: Home Meds atorvaSTATin Calcium [Atorvastatin Calcium] 40 mg PO BEDTIME 02/22/15 [History] Clopidogrel Bisulfate [Clopidogrel] 75 mg PO DAILY 12/29/16 [History] Dutasteride 0.5 mg PO BEDTIME PRN 09/01/18 [History] Terazosin [Hytrin] 4 mg PO BEDTIME PRN 09/01/18 [History] Aspirin [Aspirin EC] 81 mg PO DAILY 05/15/20 [History] Diclofenac Sodium 2 g TOP BID PRN 05/15/20 [History] Isosorbide Mononitrate [Imdur] 30 mg PO DAILY 05/15/20 [History] Losartan [Cozaar] 100 mg PO DAILY 05/15/20 [History] Digoxin 125 mcg PO DAILY 05/19/20 [History] carvediloL [Carvedilol] 12.5 mg PO BIDMEALS 05/19/20 [History] Past Medical History HEENT History: Reports: None, Other (See Below) Other HEENT History: readers. had all upper teeth pulled Cardiovascular History: Reports: High Cholesterol, Hypertension, Pacemaker, Stents Other Cardiovascular History: 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, cardiac arrest ? pacer 05/06/20. Vtach Respiratory History: Reports: None Gastrointestinal History: Reports: GERD, Other (See Below) Other Gastrointestinal History: torn esophagus. feels constipated now Genitourinary History: Reports: Prostate Disorder, Renal Calculus, Other (See Below) Other Genitourinary History: uses med to void Musculoskeletal History: Reports: None Neurological History: Reports: None Psychiatric History: Reports: None Endocrine/Metabolic History: Reports: None Hematologic History: Reports: None Oncologic (Cancer) History: Reports: None Dermatologic History: Reports: None - Infectious Disease History Infectious Disease History: Reports: Pertussis (Whooping Cough) - Past Surgical History Cardiovascular Surgical History: Reports: Coronary Artery Stent, Pacer, Percutaneous Transluminal Angioplasty Social & Family History - Family History Family Medical History: No Pertinent Family History - Caffeine Use Caffeine Use: Reports: Soda, Other Other Caffeine Use: decaff coffee. diet coke - 4-6 cans/day - Living Situation & Occupation Living situation: Reports: with Significant Other Occupation: Employed ED ROS GENERAL - Review of Systems Review Of Systems: See Below Constitutional: Denies: Fever, Chills, Malaise, Weakness HEENT: Reports: No Symptoms Respiratory: Denies: Shortness of Breath, Cough Cardiovascular: Denies: Chest Pain, Syncope GI/Abdominal: Reports: Constipation (mild). Denies: Abdominal Pain, Diarrhea, Vomiting : Denies: Dysuria Musculoskeletal: Reports: Neck Pain (chronic/intermittent; arthritic), Arm Pain (left arm and lateral chest muscle that is near the pacemaker hurts with too much use of left arm frequently; Dr. Cho noted that his pacer is placed quite laterally patient says.) Skin: Denies: Cyanosis, Jaundice, Mottled, Pallor, Diaphoresis Neurological: Denies: Confusion, Dizziness, Headache, Seizure, Syncope, Trouble Speaking, Difficulty Walking Psychiatric: Reports: Agitation (he says he was a little agitated this evening due to arguing with his , and may have contributed to the raised pressure). Denies: Confusion ED EXAM, GENERAL - Physical Exam Exam: See Below Exam Limited By: No Limitations General Appearance: Alert, WD/WN, No Apparent Distress Eye Exam: Bilateral Eye: EOMI, Normal Inspection, PERRL Ears: Normal External Exam, Hearing Grossly Normal Nose: Normal Inspection, No Blood Throat/Mouth: Normal Inspection, Normal Lips, Normal Voice, No Airway Compromise Head: Atraumatic, Normocephalic Neck: Normal Inspection, Supple, Non-Tender, Full Range of Motion Respiratory/Chest: No Respiratory Distress, Lungs Clear, Normal Breath Sounds, No Accessory Muscle Use Cardiovascular: Regular Rate, Rhythm, No Murmur GI/Abdominal: Normal Bowel Sounds, Soft, Non-Tender, No Organomegaly, No Distention Back Exam: Normal Inspection, Full Range of Motion Extremities: Normal Inspection, Normal Range of Motion Neurological: Alert, Oriented, Normal Cognition, No Motor/Sensory Deficits Psychiatric: Normal Affect, Normal Mood Skin Exam: Warm, Dry, Intact, Normal Color, No Rash Course - Vital Signs Last Recorded V/S: Last Vital Signs Temp 97.1 F 07/09/20 20:42 Pulse 62 07/09/20 20:42 Resp 19 07/09/20 20:42 BP 170/101 H 07/09/20 20:42 Pulse Ox 95 07/09/20 20:42 - Orders/Labs/Meds Meds: Medications Discontinued Medications Generic Name Dose Route Start Last Admin Trade Name Nelida PRN Reason Stop Dose Admin Labetalol HCl 20 mg 07/09/20 21:30 Labetalol 100 Mg/20 Ml Mdv IVPUSH 07/09/20 21:31 ONETIME ONE Protocol Lorazepam 0.5 mg 07/09/20 20:58 07/09/20 21:01 Lorazepam 0.5 Mg Tab PO 07/09/20 20:59 0.5 mg ONETIME ONE Administration - Re-Assessments/Exams Free Text/Narrative Re-Assessment/Exam: 07/09/20 21:42 He seemed a little anxious on arrival so we tried Lorazepam 0.5 mg initially. No improvement after 25 minutes so will give Labetalol 20 mg IVP. 07/09/20 22:10 Pressure has dropped nicely, now at 160/91. Patient feels calm and relaxed and ready to go home. Discharged in stable condition. Departure - Departure Time of Disposition: 22:08 Disposition: Home, Self-Care 01 Condition: Good Clinical Impression: Hypertensive urgency - Discharge Information Instructions: Hypertension, Adult, [id number] Referrals: Tammie De Anda MD [Primary Care Provider] - Additional Instructions: Continue your regular medications. Follow up with your PCP tomorrow as scheduled. Make sure to tell her that you were in ER tonight and received Labetalol 20 mg IVP at 9:48 pm as this may affect your blood pressure until around noon tomorrow. Return to ER as needed. Sepsis Event Note (ED) - Evaluation Sepsis Screening Result: No Definite Risk - Focused Exam Vital Signs: Vital Signs Temp Pulse Resp BP Pulse Ox 07/09/20 20:42 97.1 F 62 19 170/101 H 95
[2020-07-09 22:00] VITALS: PULSE 60
[2020-07-10 00:10] VITALS: BP 157/94
== END 2020-07-09 22:26 | disposition home or self-care (01) ==
LOC: KA.ED 20:33
DX: I16.0 Hypertensive urgency (principal); E78.00 Pure hypercholesterolemia, unspecified; I10 Essential (primary) hypertension; Z79.82 Long term (current) use of aspirin; Z79.02 Long term (current) use of antithrombotics/antiplatelets; Z79.899 Other long term (current) drug therapy
CPT/HCPCS: 96374; 99283-25; 99284; A9270-GY; J3490

== ENCOUNTER 2021-04-30 13:00 | Emergency (ER) | payer MEDICARE, BC ==
[2021-04-30 14:19] LABS: ANION GAP 14.9 mmol/L (5-15); CHLORIDE,CL 102 mmol/L (98-107); SODIUM,NA 137 mmol/L (136-145)
[2021-04-30 15:04] VITALS: PULSE 60
[2021-04-30 15:05] VITALS: BP 129/75
== END 2021-04-30 14:55 | disposition home or self-care (01) ==
LOC: KA.ED 13:00
DX: R07.89 Other chest pain (principal); G89.18 Other acute postprocedural pain; E78.00 Pure hypercholesterolemia, unspecified; I10 Essential (primary) hypertension; K21.9 Gastro-esophageal reflux disease without esophagitis; Z95.0 Presence of cardiac pacemaker; Z79.899 Other long term (current) drug therapy; Z79.82 Long term (current) use of aspirin
CPT/HCPCS: 36415; 80048; 84484; 85025; 93005; 99284

== ENCOUNTER 2021-07-31 14:51 | Emergency (ER) | payer MEDICARE, BC ==
[2021-07-31 14:59] VITALS: BP 165/101; PULSE 72
[2021-07-31] MEDS ORDERED: Diphtheria,Pertussis(Acell),Tetanus Vaccine 0.5 ML Syringe IM ONE (15:10)
[2021-07-31] MEDS ORDERED: Lidocaine 1% 20 ML MDV ONE (15:28)
[2021-07-31] MEDS ORDERED: Lidocaine 1% 20 ML MDV INJECT ONE (15:32)
== END 2021-07-31 16:00 | disposition home or self-care (01) ==
LOC: KA.ED 14:51
DX: S61.012A Laceration without foreign body of left thumb without damage to nail, initial encounter (principal); E78.00 Pure hypercholesterolemia, unspecified; I10 Essential (primary) hypertension; Z23 Encounter for immunization; Z79.82 Long term (current) use of aspirin; Z79.899 Other long term (current) drug therapy; W26.8XXA Contact with other sharp object(s), not elsewhere classified, initial encounter
CPT/HCPCS: 12002; 73140-FA; 90471; 90715; 99283; 99283-25

== ENCOUNTER 2021-10-08 10:42 | Emergency (ER) | payer MEDICARE, BC ==
[2021-10-08 11:06] VITALS: PULSE 60
[2021-10-08 11:30] LABS: ANION GAP 11.8 mmol/L (5-15)
[2021-10-08 12:38] VITALS: BP 137/79
== END 2021-10-08 13:00 | disposition home or self-care (01) ==
LOC: KA.ED 10:42
DX: D72.828 Other elevated white blood cell count (principal); R11.2 Nausea with vomiting, unspecified; R07.89 Other chest pain; I10 Essential (primary) hypertension; E78.00 Pure hypercholesterolemia, unspecified; K21.9 Gastro-esophageal reflux disease without esophagitis; E66.9 Obesity, unspecified; Z68.32 Body mass index [BMI] 32.0-32.9, adult; Z79.899 Other long term (current) drug therapy
CPT/HCPCS: 36415; 71046; 80053; 81001; 84484; 85025; 93005; 99284; 99285

== ENCOUNTER 2024-07-18 15:41 | Emergency (ER) | payer MEDICARE, BC ==
[2024-07-18] MEDS ORDERED: Sodium Chloride 0.9% 10 ML Syringe FLUSH PRN (16:14)
[2024-07-18 16:44] LABS: BASOPHILS ABSOLUTE AUTO 0.02 10^3/uL (0.00-0.10); BASOPHILS PERCENT AUTO 0.2 % (0.0-1.0); EOSINOPHILS ABSOLUTE AUTO 0.13 10^3/uL (0.10-0.30); EOSINOPHILS PERCENT AUTO 1.4 % (1.0-3.0); HEMATOCRIT 39.6 % (40.0-52.0); IMMATURE GRAN ABSOLUTE AUTO 0.03 10^3/uL (0.00-0.04); IMMATURE GRAN PERCENT AUTO 0.3 % (0.0-0.4); LYMPHOCYTES ABSOLUTE AUTO 1.65 10^3/uL (1.00-4.00); LYMPHOCYTES PERCENT AUTO 17.3 % (20.0-40.0); MEAN CORPUSCULAR HEMOGLOBIN 30.9 pg (27.0-31.0); MEAN CORPUSCULAR HGB CONC 32.8 g/dL (32.0-36.0); MEAN CORPUSCULAR VOLUME 94.1 fL (82.0-92.0); MEAN PLATELET VOLUME 11.1 fL (7.4-10.4); MONOCYTES ABSOLUTE AUTO 1.06 10^3/uL (0.10-0.80); MONOCYTES PERCENT AUTO 11.1 % (2.0-8.0); NEUTROPHILS ABSOLUTE AUTO 6.67 10^3/uL (2.50-7.00); NEUTROPHILS PERCENT AUTO 69.7 % (50.0-70.0); PLATELET COUNT,PLT 239 10^3/uL (150-400); RED BLOOD CELL COUNT 4.21 10^6/uL (4.50-6.00); RED CELL DISTRIBUTION WIDTH 13.7 % (11.5-14.5); WHITE BLOOD CELL COUNT,WBC 9.56 10^3/uL (5.00-10.00)
[2024-07-18 17:04] LABS: ALBUMIN 2.94 g/dL (3.40-5.00); ANION GAP 12.4 mmol/L (5-15); BILIRUBIN TOTAL 0.5 mg/dL (0.2-1.0); CALCIUM 9.7 mg/dL (8.7-10.3); CARBON DIOXIDE,CO2 25.9 mmol/L (21.0-32.0); CREATININE 1.06 mg/dL (0.51-1.17); EST CRCL DRUG DOSING (CG) 51.97 mL/min; POTASSIUM,K 4.3 mmol/L (3.5-5.1); PROTEIN TOTAL,TP 6.4 g/dL (6.4-8.2)
[2024-07-18 17:20] LABS: INR 1.1 (0.9-1.1); PROTHROMBIN TIME 11.6 SEC (9.1-12.0); PTT,PARTIAL THROMBOPLSTIN TIME 27.1 SEC (21.6-32.4)
[2024-07-18] MEDS: Heparin Sodium/D5W 250 ML IV SCH (18:58)
[2024-07-18] MEDS: Heparin Sodium 5,000 Units/ML Vial IVPUSH ONE (18:58)
[2024-07-18 19:02] VITALS: BP 129/81; PULSE 62
== END 2024-07-18 22:10 ==
LOC: KA.ED 15:41
DX: I51.3 Intracardiac thrombosis, not elsewhere classified (principal); I10 Essential (primary) hypertension; E78.00 Pure hypercholesterolemia, unspecified; K21.9 Gastro-esophageal reflux disease without esophagitis; E66.9 Obesity, unspecified; Z68.28 Body mass index [BMI] 28.0-28.9, adult; Z90.49 Acquired absence of other specified parts of digestive tract; Z79.899 Other long term (current) drug therapy
CPT/HCPCS: 36415; 71045; 80053; 83880; 84484; 85025; 85610; 85730; 93010; 96365; 96366; 99284; 99285-25; J1644